=== PATIENT | male | born 1980 | race Two or more races ===

== ENCOUNTER 2016-08-25 10:58 | Outpatient (CLI) | payer MEDICARE, OTHER | END 2016-08-25 23:59 | disposition home or self-care (01) | LOC: WOU 10:58 | PROVIDERS: ATTEND Surgery | DX: L89.324 Pressure ulcer of left buttock, stage 4 (principal); M86.48 Chronic osteomyelitis with draining sinus, other site; Q05.2 Lumbar spina bifida with hydrocephalus; Z98.2 Presence of cerebrospinal fluid drainage device; Z72.0 Tobacco use; K59.00 Constipation, unspecified; E88.09 Other disorders of plasma-protein metabolism, not elsewhere classified | CPT/HCPCS: 11043; A6402 ==

== ENCOUNTER 2016-09-15 14:09 | Outpatient (CLI) | payer MEDICARE, OTHER | END 2016-09-15 23:59 | disposition home or self-care (01) | LOC: WOU 14:09 | PROVIDERS: ATTEND Surgery | DX: M86.48 Chronic osteomyelitis with draining sinus, other site (principal); Q05.2 Lumbar spina bifida with hydrocephalus; Z98.2 Presence of cerebrospinal fluid drainage device; K59.00 Constipation, unspecified; E88.09 Other disorders of plasma-protein metabolism, not elsewhere classified | CPT/HCPCS: 11043; A6402 ==

== ENCOUNTER 2016-09-29 13:56 | Outpatient (CLI) | payer MEDICARE, OTHER | END 2016-09-29 23:59 | disposition home or self-care (01) | DX: L89.324 Pressure ulcer of left buttock, stage 4 (principal); Q05.2 Lumbar spina bifida with hydrocephalus; E88.09 Other disorders of plasma-protein metabolism, not elsewhere classified; K59.00 Constipation, unspecified; Z72.0 Tobacco use; Z98.2 Presence of cerebrospinal fluid drainage device; M86.48 Chronic osteomyelitis with draining sinus, other site | CPT/HCPCS: 11043; A6402 ==

== ENCOUNTER 2016-10-13 13:50 | Outpatient (CLI) | payer MEDICARE, OTHER | END 2016-10-13 23:59 | disposition home or self-care (01) | LOC: WOU 13:50 | PROVIDERS: ATTEND Surgery | DX: L89.324 Pressure ulcer of left buttock, stage 4 (principal); Q05.2 Lumbar spina bifida with hydrocephalus; M86.48 Chronic osteomyelitis with draining sinus, other site; E88.09 Other disorders of plasma-protein metabolism, not elsewhere classified; K59.00 Constipation, unspecified | CPT/HCPCS: 11043; A6402 ==

== ENCOUNTER 2016-11-17 14:00 | Outpatient (CLI) | payer MEDICARE, OTHER | END 2016-11-17 23:59 | disposition home or self-care (01) | LOC: WOU 14:00 | PROVIDERS: ATTEND Surgery | DX: L89.324 Pressure ulcer of left buttock, stage 4 (principal); Q05.2 Lumbar spina bifida with hydrocephalus; M86.48 Chronic osteomyelitis with draining sinus, other site; K59.00 Constipation, unspecified; E88.09 Other disorders of plasma-protein metabolism, not elsewhere classified | CPT/HCPCS: 11043; A6402 ==

== ENCOUNTER 2016-12-01 13:55 | Outpatient (CLI) | payer MEDICARE, OTHER | END 2016-12-01 23:59 | disposition home or self-care (01) | LOC: WOU 13:55 | PROVIDERS: ATTEND Surgery | DX: L89.324 Pressure ulcer of left buttock, stage 4 (principal); Q05.2 Lumbar spina bifida with hydrocephalus; M86.48 Chronic osteomyelitis with draining sinus, other site; K59.00 Constipation, unspecified; E88.09 Other disorders of plasma-protein metabolism, not elsewhere classified; F17.200 Nicotine dependence, unspecified, uncomplicated; Z98.2 Presence of cerebrospinal fluid drainage device | CPT/HCPCS: 11043; A6402 ==

== ENCOUNTER 2016-12-12 13:50 | Outpatient (CLI) | payer MEDICARE, OTHER | END 2016-12-12 23:59 | disposition home or self-care (01) | LOC: WOU 13:50 | PROVIDERS: ATTEND Surgery | DX: L89.324 Pressure ulcer of left buttock, stage 4 (principal); Q05.2 Lumbar spina bifida with hydrocephalus; E88.09 Other disorders of plasma-protein metabolism, not elsewhere classified; K59.09 Other constipation; M86.48 Chronic osteomyelitis with draining sinus, other site; Z72.0 Tobacco use; Z98.2 Presence of cerebrospinal fluid drainage device | CPT/HCPCS: 11043; A6402 ==

== ENCOUNTER 2016-12-29 13:58 | Outpatient (CLI) | payer MEDICARE, OTHER | END 2016-12-29 23:59 | disposition home or self-care (01) | LOC: WOU 13:58 | PROVIDERS: ATTEND Surgery | DX: L89.324 Pressure ulcer of left buttock, stage 4 (principal); Q05.2 Lumbar spina bifida with hydrocephalus; E88.09 Other disorders of plasma-protein metabolism, not elsewhere classified; K59.09 Other constipation; M86.48 Chronic osteomyelitis with draining sinus, other site; Z72.0 Tobacco use; Z98.2 Presence of cerebrospinal fluid drainage device | CPT/HCPCS: 11043; A6402 ==

== ENCOUNTER 2017-01-12 13:45 | Outpatient (CLI) | payer MEDICARE, OTHER | END 2017-01-12 23:59 | disposition home or self-care (01) | LOC: WOU 13:45 | PROVIDERS: ATTEND Surgery | DX: L89.324 Pressure ulcer of left buttock, stage 4 (principal); Q05.2 Lumbar spina bifida with hydrocephalus; Z98.2 Presence of cerebrospinal fluid drainage device; K59.00 Constipation, unspecified; M86.48 Chronic osteomyelitis with draining sinus, other site; Z72.0 Tobacco use | CPT/HCPCS: 11043; A6402 ==

== ENCOUNTER 2017-02-02 14:00 | Outpatient (CLI) | payer MEDICARE, OTHER | END 2017-02-02 23:59 | disposition home or self-care (01) | LOC: WOU 14:00 | PROVIDERS: ATTEND Surgery | DX: L89.324 Pressure ulcer of left buttock, stage 4 (principal); Q05.2 Lumbar spina bifida with hydrocephalus; Z98.2 Presence of cerebrospinal fluid drainage device; K59.00 Constipation, unspecified; E88.09 Other disorders of plasma-protein metabolism, not elsewhere classified; M86.652 Other chronic osteomyelitis, left thigh | CPT/HCPCS: 11043; A6402 ==

== ENCOUNTER 2017-02-16 13:40 | Outpatient (CLI) | payer MEDICARE, OTHER | END 2017-02-16 23:59 | disposition home health service (06) | LOC: WOU 13:40 | PROVIDERS: ATTEND Surgery | DX: L89.324 Pressure ulcer of left buttock, stage 4 (principal); Q05.2 Lumbar spina bifida with hydrocephalus; Z98.2 Presence of cerebrospinal fluid drainage device; K59.00 Constipation, unspecified; E88.09 Other disorders of plasma-protein metabolism, not elsewhere classified; M86.652 Other chronic osteomyelitis, left thigh; Z72.0 Tobacco use | CPT/HCPCS: 11043; A6402 ==

== ENCOUNTER 2017-03-02 13:58 | Outpatient (CLI) | payer MEDICARE, OTHER | END 2017-03-02 23:59 | disposition home health service (06) | LOC: WOU 13:58 | PROVIDERS: ATTEND Surgery | DX: L89.324 Pressure ulcer of left buttock, stage 4 (principal); M86.48 Chronic osteomyelitis with draining sinus, other site; Q05.2 Lumbar spina bifida with hydrocephalus; Z98.2 Presence of cerebrospinal fluid drainage device; K59.00 Constipation, unspecified | CPT/HCPCS: 11043; A6402 ==

== ENCOUNTER 2017-03-16 13:35 | Outpatient (CLI) | payer MEDICARE, OTHER | END 2017-03-16 23:59 | disposition home health service (06) | LOC: WOU 13:35 | PROVIDERS: ATTEND Surgery | DX: L89.324 Pressure ulcer of left buttock, stage 4 (principal); Q05.2 Lumbar spina bifida with hydrocephalus; M86.48 Chronic osteomyelitis with draining sinus, other site; F32.1 Major depressive disorder, single episode, moderate; Z72.0 Tobacco use | CPT/HCPCS: 11043; A6402 ==

== ENCOUNTER 2017-04-03 13:46 | Outpatient (CLI) | payer MEDICARE, OTHER | END 2017-04-03 23:59 | disposition home health service (06) | LOC: WOU 13:46 | PROVIDERS: ATTEND Surgery | DX: L89.324 Pressure ulcer of left buttock, stage 4 (principal); Q05.2 Lumbar spina bifida with hydrocephalus; M86.48 Chronic osteomyelitis with draining sinus, other site; F32.1 Major depressive disorder, single episode, moderate; Z72.0 Tobacco use; Z98.2 Presence of cerebrospinal fluid drainage device | CPT/HCPCS: 11043; A6402 ==

== ENCOUNTER 2017-04-20 13:56 | Outpatient (CLI) | payer MEDICARE, OTHER | END 2017-04-20 23:59 | disposition home health service (06) | LOC: WOU 13:56 | PROVIDERS: ATTEND Surgery | DX: L89.324 Pressure ulcer of left buttock, stage 4 (principal); M86.48 Chronic osteomyelitis with draining sinus, other site; Q05.2 Lumbar spina bifida with hydrocephalus; Z98.2 Presence of cerebrospinal fluid drainage device; K59.00 Constipation, unspecified; Z72.0 Tobacco use; E88.09 Other disorders of plasma-protein metabolism, not elsewhere classified | CPT/HCPCS: 11043; A6402 ==

== ENCOUNTER 2017-05-04 13:52 | Outpatient (CLI) | payer MEDICARE, OTHER | END 2017-05-04 23:59 | disposition home or self-care (01) | LOC: WOU 13:52 | PROVIDERS: ATTEND Surgery | DX: L89.324 Pressure ulcer of left buttock, stage 4 (principal); E88.09 Other disorders of plasma-protein metabolism, not elsewhere classified; K59.00 Constipation, unspecified; Q05.9 Spina bifida, unspecified; M86.48 Chronic osteomyelitis with draining sinus, other site; Z98.2 Presence of cerebrospinal fluid drainage device; Z51.5 Encounter for palliative care | CPT/HCPCS: 11043; A6402 ==

== ENCOUNTER 2017-06-01 13:26 | Outpatient (CLI) | payer MEDICARE, OTHER | END 2017-06-01 23:59 | disposition home or self-care (01) | LOC: WOU 13:26 | PROVIDERS: ATTEND Surgery | DX: L89.324 Pressure ulcer of left buttock, stage 4 (principal); M86.48 Chronic osteomyelitis with draining sinus, other site; Q05.2 Lumbar spina bifida with hydrocephalus; K59.00 Constipation, unspecified; Z98.2 Presence of cerebrospinal fluid drainage device; Z51.5 Encounter for palliative care; Z72.0 Tobacco use; F32.1 Major depressive disorder, single episode, moderate; R26.89 Other abnormalities of gait and mobility | CPT/HCPCS: 11043; A6402 ==

== ENCOUNTER 2017-06-26 13:22 | Outpatient (CLI) | payer MEDICARE, OTHER | END 2017-06-26 23:59 | disposition home or self-care (01) | LOC: WOU 13:22 | PROVIDERS: ATTEND Surgery | DX: L89.324 Pressure ulcer of left buttock, stage 4 (principal); Q05.2 Lumbar spina bifida with hydrocephalus; Z98.2 Presence of cerebrospinal fluid drainage device; Z72.0 Tobacco use; K59.00 Constipation, unspecified; E88.09 Other disorders of plasma-protein metabolism, not elsewhere classified; M86.48 Chronic osteomyelitis with draining sinus, other site; R26.9 Unspecified abnormalities of gait and mobility | CPT/HCPCS: 11043; A6402 ==

== ENCOUNTER 2017-07-13 13:00 | Outpatient (CLI) | payer MEDICARE, OTHER | END 2017-07-13 23:59 | disposition home or self-care (01) | LOC: WOU 13:00 | PROVIDERS: ATTEND Surgery | DX: L89.324 Pressure ulcer of left buttock, stage 4 (principal); Q05.2 Lumbar spina bifida with hydrocephalus; M86.48 Chronic osteomyelitis with draining sinus, other site; Z98.2 Presence of cerebrospinal fluid drainage device; E88.09 Other disorders of plasma-protein metabolism, not elsewhere classified; Z72.0 Tobacco use | CPT/HCPCS: 11043; A6402 ==

== ENCOUNTER 2017-07-27 13:15 | Outpatient (CLI) | payer MEDICARE, OTHER | END 2017-07-27 23:59 | disposition home or self-care (01) | LOC: WOU 13:15 | PROVIDERS: ATTEND Surgery | DX: L89.324 Pressure ulcer of left buttock, stage 4 (principal); M86.48 Chronic osteomyelitis with draining sinus, other site; Q05.2 Lumbar spina bifida with hydrocephalus; Z98.2 Presence of cerebrospinal fluid drainage device; E88.09 Other disorders of plasma-protein metabolism, not elsewhere classified | CPT/HCPCS: 11043; A6402 ==

== ENCOUNTER 2017-08-10 11:04 | Outpatient (CLI) | payer MEDICARE, OTHER | END 2017-08-10 23:59 | disposition home health service (06) | LOC: WOU 11:04 | PROVIDERS: ATTEND Surgery | DX: Z51.5 Encounter for palliative care (principal); L89.324 Pressure ulcer of left buttock, stage 4; M86.48 Chronic osteomyelitis with draining sinus, other site; Q05.2 Lumbar spina bifida with hydrocephalus; Z98.2 Presence of cerebrospinal fluid drainage device; Z89.432 Acquired absence of left foot; E88.09 Other disorders of plasma-protein metabolism, not elsewhere classified; K59.00 Constipation, unspecified; R26.89 Other abnormalities of gait and mobility; Z72.0 Tobacco use | CPT/HCPCS: 11043; A6402 ==

== ENCOUNTER 2017-08-24 13:06 | Outpatient (CLI) | payer MEDICARE, OTHER | END 2017-08-24 23:59 | disposition home health service (06) | LOC: WOU 13:06 | PROVIDERS: ATTEND Surgery | DX: L89.324 Pressure ulcer of left buttock, stage 4 (principal); Z98.2 Presence of cerebrospinal fluid drainage device; Z72.0 Tobacco use | CPT/HCPCS: 11043; A6402 ==

== ENCOUNTER 2017-09-11 13:20 | Outpatient (CLI) | payer MEDICARE, OTHER | END 2017-09-11 23:59 | disposition home health service (06) | LOC: WOU 13:20 | PROVIDERS: ATTEND Surgery | DX: L89.324 Pressure ulcer of left buttock, stage 4 (principal); Q05.2 Lumbar spina bifida with hydrocephalus; M86.48 Chronic osteomyelitis with draining sinus, other site; Z98.2 Presence of cerebrospinal fluid drainage device; Z72.0 Tobacco use; K59.00 Constipation, unspecified; E88.09 Other disorders of plasma-protein metabolism, not elsewhere classified | CPT/HCPCS: 11043; A6402 ==

== ENCOUNTER 2017-09-25 12:50 | Outpatient (CLI) | payer MEDICARE, OTHER | END 2017-09-25 23:59 | disposition home health service (06) | LOC: WOU 12:50 | PROVIDERS: ATTEND Surgery | DX: L89.324 Pressure ulcer of left buttock, stage 4 (principal); M86.48 Chronic osteomyelitis with draining sinus, other site; Q05.2 Lumbar spina bifida with hydrocephalus; Z98.2 Presence of cerebrospinal fluid drainage device; F17.200 Nicotine dependence, unspecified, uncomplicated; E88.09 Other disorders of plasma-protein metabolism, not elsewhere classified; K59.00 Constipation, unspecified | CPT/HCPCS: 11043; A6402 ==

== ENCOUNTER 2017-11-02 11:20 | Outpatient (CLI) | payer MEDICARE, OTHER | END 2017-11-02 23:59 | disposition home health service (06) | LOC: WOU 11:20 | PROVIDERS: ATTEND Surgery | DX: L89.324 Pressure ulcer of left buttock, stage 4 (principal); E88.09 Other disorders of plasma-protein metabolism, not elsewhere classified; K59.00 Constipation, unspecified; Q05.9 Spina bifida, unspecified; F17.200 Nicotine dependence, unspecified, uncomplicated; M86.652 Other chronic osteomyelitis, left thigh | CPT/HCPCS: 11043; A6402 ==

== ENCOUNTER 2017-11-20 12:50 | Outpatient (CLI) | payer MEDICARE, OTHER | END 2017-11-20 23:59 | disposition home health service (06) | LOC: WOU 12:50 | PROVIDERS: ATTEND Surgery | DX: L89.324 Pressure ulcer of left buttock, stage 4 (principal); Q05.2 Lumbar spina bifida with hydrocephalus; M86.48 Chronic osteomyelitis with draining sinus, other site; F17.200 Nicotine dependence, unspecified, uncomplicated; Z98.2 Presence of cerebrospinal fluid drainage device; Z51.5 Encounter for palliative care; E88.09 Other disorders of plasma-protein metabolism, not elsewhere classified; K59.00 Constipation, unspecified | CPT/HCPCS: 11043; A6402 ==

== ENCOUNTER 2017-12-11 12:59 | Outpatient (CLI) | payer MEDICARE, OTHER | END 2017-12-11 23:59 | disposition home health service (06) | LOC: WOU 12:59 | PROVIDERS: ATTEND Surgery | DX: L89.324 Pressure ulcer of left buttock, stage 4 (principal); Q05.2 Lumbar spina bifida with hydrocephalus; K59.00 Constipation, unspecified; E88.09 Other disorders of plasma-protein metabolism, not elsewhere classified; M86.48 Chronic osteomyelitis with draining sinus, other site | CPT/HCPCS: 11043; A6402 ==

== ENCOUNTER 2017-12-25 12:50 | Outpatient (CLI) | payer MEDICARE, OTHER | END 2017-12-25 23:59 | disposition home health service (06) | LOC: WOU 12:50 | PROVIDERS: ATTEND Surgery | DX: L89.324 Pressure ulcer of left buttock, stage 4 (principal); Q05.2 Lumbar spina bifida with hydrocephalus; M86.48 Chronic osteomyelitis with draining sinus, other site; F17.200 Nicotine dependence, unspecified, uncomplicated; K59.00 Constipation, unspecified | CPT/HCPCS: 11043; A6402 ==

== ENCOUNTER 2018-01-08 13:00 | Outpatient (CLI) | payer MEDICARE, OTHER | END 2018-01-08 23:59 | disposition home health service (06) | LOC: WOU 13:00 | PROVIDERS: ATTEND Surgery | DX: L89.324 Pressure ulcer of left buttock, stage 4 (principal); Q05.2 Lumbar spina bifida with hydrocephalus; M86.48 Chronic osteomyelitis with draining sinus, other site; E88.09 Other disorders of plasma-protein metabolism, not elsewhere classified; R19.7 Diarrhea, unspecified; Z72.0 Tobacco use; L98.8 Other specified disorders of the skin and subcutaneous tissue | CPT/HCPCS: 11043; A6402 ==

== ENCOUNTER 2018-01-22 12:50 | Outpatient (CLI) | payer MEDICARE, OTHER | END 2018-01-22 23:59 | disposition home health service (06) | LOC: WOU 12:50 | PROVIDERS: ATTEND Surgery | DX: L89.324 Pressure ulcer of left buttock, stage 4 (principal); Q05.2 Lumbar spina bifida with hydrocephalus; M86.48 Chronic osteomyelitis with draining sinus, other site; S30.810A Abrasion of lower back and pelvis, initial encounter; X58.XXXA Exposure to other specified factors, initial encounter; Y92.89 Other specified places as the place of occurrence of the external cause; L98.8 Other specified disorders of the skin and subcutaneous tissue; K59.00 Constipation, unspecified; R19.7 Diarrhea, unspecified; Z72.0 Tobacco use; E88.09 Other disorders of plasma-protein metabolism, not elsewhere classified | CPT/HCPCS: 11043; A6402; Z7610 ==

== ENCOUNTER 2018-02-12 13:30 | Outpatient (CLI) | payer MEDICARE, OTHER | END 2018-02-12 23:59 | disposition home health service (06) | LOC: WOU 13:30 | PROVIDERS: ATTEND Surgery | DX: L89.324 Pressure ulcer of left buttock, stage 4 (principal); M86.48 Chronic osteomyelitis with draining sinus, other site; Q05.2 Lumbar spina bifida with hydrocephalus; E88.09 Other disorders of plasma-protein metabolism, not elsewhere classified; Z72.0 Tobacco use | CPT/HCPCS: 11043; A6402; Z7610 ==

== ENCOUNTER 2018-02-26 14:10 | Outpatient (CLI) | payer MEDICARE, OTHER | END 2018-02-26 23:59 | disposition home health service (06) | LOC: WOU 14:10 | PROVIDERS: ATTEND Surgery | DX: L89.324 Pressure ulcer of left buttock, stage 4 (principal); M86.48 Chronic osteomyelitis with draining sinus, other site; Q05.2 Lumbar spina bifida with hydrocephalus; E88.09 Other disorders of plasma-protein metabolism, not elsewhere classified; Z72.0 Tobacco use | CPT/HCPCS: 11043; A6402; Z7610 ==

== ENCOUNTER 2018-03-22 14:36 | Outpatient (CLI) | payer MEDICARE, OTHER | END 2018-03-22 23:59 | disposition home health service (06) | LOC: WOU 14:36 | PROVIDERS: ATTEND Surgery | DX: L89.324 Pressure ulcer of left buttock, stage 4 (principal); Q05.2 Lumbar spina bifida with hydrocephalus; M86.68 Other chronic osteomyelitis, other site; F17.200 Nicotine dependence, unspecified, uncomplicated; K59.00 Constipation, unspecified; Z98.2 Presence of cerebrospinal fluid drainage device | CPT/HCPCS: 11043; A6402; Z7610 ==

== ENCOUNTER 2018-04-05 13:00 | Outpatient (CLI) | payer MEDICARE, OTHER ==
[~2018-04-05 13:00] MED LIST: LIDOCAINE 1% INJ 50 ML MDV IJ ONE; TDAP [DIPH/PERTUSSIS/TET] 0.5 ML VIAL IM ONE
== END 2018-04-05 23:59 | disposition home health service (06) ==
LOC: WOU 13:00
PROVIDERS: ATTEND Surgery
DX: L89.324 Pressure ulcer of left buttock, stage 4 (principal); G91.9 Hydrocephalus, unspecified; M86.48 Chronic osteomyelitis with draining sinus, other site; E88.09 Other disorders of plasma-protein metabolism, not elsewhere classified; Z72.0 Tobacco use
CPT/HCPCS: 11043; 90715; A6402; J3490

== ENCOUNTER 2018-04-19 15:00 | Outpatient (CLI) | payer MEDICARE, OTHER | END 2018-04-19 23:59 | disposition home health service (06) | LOC: WOU 15:00 | PROVIDERS: ATTEND Surgery | DX: L89.324 Pressure ulcer of left buttock, stage 4 (principal); M86.48 Chronic osteomyelitis with draining sinus, other site; Q05.2 Lumbar spina bifida with hydrocephalus; Z72.0 Tobacco use; E88.09 Other disorders of plasma-protein metabolism, not elsewhere classified | CPT/HCPCS: 11043; A6402; Z7610 ==

== ENCOUNTER 2018-05-10 13:50 | Outpatient (CLI) | payer MEDICARE, OTHER | END 2018-05-10 23:59 | disposition home health service (06) | LOC: WOU 13:50 | PROVIDERS: ATTEND Surgery | DX: L89.324 Pressure ulcer of left buttock, stage 4 (principal); Q05.2 Lumbar spina bifida with hydrocephalus; E88.09 Other disorders of plasma-protein metabolism, not elsewhere classified; Z72.0 Tobacco use; M86.48 Chronic osteomyelitis with draining sinus, other site | CPT/HCPCS: 11043; A6402; Z7610 ==

== ENCOUNTER 2018-05-24 13:59 | Outpatient (CLI) | payer MEDICARE, OTHER | END 2018-05-24 23:59 | disposition home health service (06) | LOC: WOU 13:59 | PROVIDERS: ATTEND Surgery | DX: L89.324 Pressure ulcer of left buttock, stage 4 (principal); M86.48 Chronic osteomyelitis with draining sinus, other site; Q05.4 Unspecified spina bifida with hydrocephalus; S91.311A Laceration without foreign body, right foot, initial encounter; X58.XXXA Exposure to other specified factors, initial encounter; Y92.89 Other specified places as the place of occurrence of the external cause; E88.09 Other disorders of plasma-protein metabolism, not elsewhere classified | CPT/HCPCS: 11042; 11043; A6402; Z7610 ==

== ENCOUNTER 2018-07-26 13:29 | Outpatient (CLI) | payer MEDICARE, OTHER | END 2018-07-26 23:59 | disposition home health service (06) | LOC: WOU 13:29 | PROVIDERS: ATTEND Surgery | DX: L89.324 Pressure ulcer of left buttock, stage 4 (principal); L89.153 Pressure ulcer of sacral region, stage 3; G60.3 Idiopathic progressive neuropathy; M86.652 Other chronic osteomyelitis, left thigh; Q05.2 Lumbar spina bifida with hydrocephalus; Z98.2 Presence of cerebrospinal fluid drainage device; Z72.0 Tobacco use; E88.09 Other disorders of plasma-protein metabolism, not elsewhere classified | CPT/HCPCS: 11042; 11043; A6402; Z7610 ==

== ENCOUNTER 2018-08-09 13:20 | Outpatient (CLI) | payer MEDICARE, OTHER | END 2018-08-09 23:59 | disposition home health service (06) | LOC: WOU 13:20 | PROVIDERS: ATTEND Surgery | DX: L89.324 Pressure ulcer of left buttock, stage 4 (principal); L89.153 Pressure ulcer of sacral region, stage 3; Q05.2 Lumbar spina bifida with hydrocephalus; G60.3 Idiopathic progressive neuropathy; M86.48 Chronic osteomyelitis with draining sinus, other site; Z98.2 Presence of cerebrospinal fluid drainage device; F17.210 Nicotine dependence, cigarettes, uncomplicated; E88.09 Other disorders of plasma-protein metabolism, not elsewhere classified | CPT/HCPCS: 11042; 11043; A6402; Z7610 ==

== ENCOUNTER 2018-08-23 13:05 | Outpatient (CLI) | payer MEDICARE, OTHER | END 2018-08-23 23:59 | disposition home health service (06) | LOC: WOU 13:05 | PROVIDERS: ATTEND Surgery | DX: L89.324 Pressure ulcer of left buttock, stage 4 (principal); L89.153 Pressure ulcer of sacral region, stage 3; G60.3 Idiopathic progressive neuropathy; Q05.2 Lumbar spina bifida with hydrocephalus; M86.48 Chronic osteomyelitis with draining sinus, other site; Z98.2 Presence of cerebrospinal fluid drainage device; F17.210 Nicotine dependence, cigarettes, uncomplicated | CPT/HCPCS: 11043; A6402 ==

== ENCOUNTER 2018-09-06 13:15 | Outpatient (CLI) | payer MEDICARE, OTHER | END 2018-09-06 23:59 | disposition home health service (06) | LOC: WOU 13:15 | PROVIDERS: ATTEND Surgery | DX: L89.324 Pressure ulcer of left buttock, stage 4 (principal); M86.48 Chronic osteomyelitis with draining sinus, other site; G60.3 Idiopathic progressive neuropathy; Q05.2 Lumbar spina bifida with hydrocephalus; E88.09 Other disorders of plasma-protein metabolism, not elsewhere classified; F17.210 Nicotine dependence, cigarettes, uncomplicated; S91.311A Laceration without foreign body, right foot, initial encounter; S91.312A Laceration without foreign body, left foot, initial encounter; L03.116 Cellulitis of left lower limb; X58.XXXA Exposure to other specified factors, initial encounter; Y92.89 Other specified places as the place of occurrence of the external cause | CPT/HCPCS: 11043; 11042; 87070; 87075; 87077; A6402 ×2; A6407; J3490 ==

== ENCOUNTER 2018-09-17 11:55 | Outpatient (CLI) | payer MEDICARE, OTHER ==
[2018-09-17] MEDS ORDERED: AMOX1TAB16 (15:32)
== END 2018-09-17 23:59 | disposition home health service (06) ==
LOC: WOU 11:55
PROVIDERS: ATTEND Podiatrist Foot & Ankle Surgery
DX: S91.312A Laceration without foreign body, left foot, initial encounter (principal); L03.116 Cellulitis of left lower limb; L97.523 Non-pressure chronic ulcer of other part of left foot with necrosis of muscle; S91.311D Laceration without foreign body, right foot, subsequent encounter; Q05.2 Lumbar spina bifida with hydrocephalus; M86.48 Chronic osteomyelitis with draining sinus, other site; G60.3 Idiopathic progressive neuropathy; X58.XXXA Exposure to other specified factors, initial encounter; Y92.89 Other specified places as the place of occurrence of the external cause; F17.200 Nicotine dependence, unspecified, uncomplicated
CPT/HCPCS: 11043; 87070; 87075; A6402; 87186-TC

== ENCOUNTER 2018-09-17 13:59 | Inpatient (IN) | payer MEDICARE, OTHER ==
[~2018-09-17] VITALS: Ht 167.6 cm; Wt 71.0 kg
--- NOTE | 2018-09-17 15:00 | NUR ---
MS ASSET ANALYST NOTE RECEIVED PATIENT FROM [facility] FOR DIRECT ADMISSION WITH LEFT FOOT CELLULITIS. PATIENT WAS BROUGHT TO THE UNIT ON A WHEELCHAIR BY THE CLINIC RN. PATIENT IS ALERT ORIENTED X3, ON ROOM AIR, IN NO APPARENT DISTRESS OR DISCOMFORT AT THIS TIME, RESPIRATIONS EVEN AND UNLABORED. PATIENT IS STABLE, VITAL SIGNS STABLE. PATIENT WAS MADE COMFORTABLE IN BED. INITIAL ASSESSMENT COMPLETES, SKIN ASSESSMENT PERFORMED, PHOTOS TAKEN PLACED IN CHART. DRESSINGS CHANGED ON BILATERAL EXTREMITIES PER WOUND CARE NURSE'S INSTRUCTIONS. PATIENT HAS NO IV ACCESS AT THIS TIME. BELONGING CHECKED AND DOCUMENTED. PATIENT MADE COMFORTABLE IN BED. ID BAND APPLIED, ORIENTED TO ROOM AND HOW TO CALL FOR ASSISTANCE. SAFETY MEASURES APPLIED, BED IN LOW LOCKED POSITION, SIDE RAILS UP X2, CALL LIGHT WITHIN EASY REACH. MOM AT BEDSIDE WITH THE PATIENT. NOTIFIED DR. MCCOY OF PATIENT'S ARRIVAL TO THE UNIT. WILL CONTINUE TO MONITOR AND CARRY OUT ADMISSION ORDERS.
[2018-09-17] MEDS ORDERED: AMOX1TAB16 (15:32)
[2018-09-17] MEDS ORDERED: ZOLPIDEM TARTRATE 5 MG TABLET PO PRN (16:00)
[2018-09-17] MEDS ORDERED: Z GUARD REMEDY 2 OZ OINT TP PRN (16:00)
[2018-09-17] MEDS ORDERED: VANCOMYCIN 1 GM in IV NS 0.9% 250 ML IV SCH (16:00)
[2018-09-17] MEDS ORDERED: MAG HYDROX/AL HYDROX/SIMETH 30 ML UDC PO PRN (16:00)
[2018-09-17] MEDS ORDERED: ACETAMINOPHEN 325 MG TABLET PO PRN (16:00)
[2018-09-17] MEDS ORDERED: ONDANSETRON HCL/PF 4 MG/2 ML VIAL IVP PRN (16:00)
[2018-09-17] MEDS ORDERED: MAGNESIUM HYDROXIDE 30 ML UDC PO PRN (16:00)
[2018-09-17 16:20] VITALS: BP 137/80
--- NOTE | 2018-09-17 17:00 | NUR ---
MS RN NOTE UNABLE TO ESTABLISH IV ACCESS AT THIS TIME. ATTEMPTED BY ME AND CATALINO BRITTON. REPORTED TO DR. DARIUS PINEDA. ORDER RECEIVED FOR MIDLINE INSERTION. SAUSAGE COOKER OPAL NOTIFIED, MIDLINE TEAM NOTIFIED. WILL FOLLOW UP.
[2018-09-17] MEDS: HYDROCODONE/APAP 5/325MG 1 EACH TABLET PO PRN (17:11)
[2018-09-17 17:56] LABS: CALCIUM, SERUM 9.4 mg/dL (8.5-10.1); CREATININE 0.8 mg/dL (0.6-1.3); POTASSIUM 3.7 mmol/L (3.5-5.1)
[2018-09-17 18:00] VITALS: BP 137/80
[2018-09-17] MEDS ORDERED: FEE PK DOSING 1 MIN EA MC ONE (18:06)
--- NOTE | 2018-09-17 19:00 | NUR ---
MS RN CLOSING NOTE PATIENT IN BED. ALERT ORIENTED X3, ON ROOM AIR, TOLERATING WELL. IN NO APPARENT DISTRESS OR DISCOMFORT AT THIS TIME. RESPIRATIONS EVEN AND UNLABORED. JUAN PAIN AND SOB AT THIS TIME. PATIENT IS ABLE TO COMMUNICATE NEEDS. LEFT UPPER ARM 18G MIDLINE IN PLACE, PATENT AND INTACT, SL. LEFT FOOT WOUND WITH DRESSING C/D/I. PATIENT KEPT CLEAN AND COMFORTABLE. ALL NEEDS ATTENDED, ORDERS RENDERED, SAFETY MEASURES IN PLACE, BED IN LOW LOCKED POSITION, SIDE RAILS UP X2, CALL LIGHT WITHIN EASY REACH. WILL ENDORSE TO PM NURSE FOR SARANYA.
--- NOTE | 2018-09-17 19:55 | NUR ---
MS RN NOTES RECEIVED PATIENT AWAKE IN BED. ALERT ORIENTED X3, ON ROOM AIR, TOLERATING WELL. IN NO APPARENT DISTRESS OR DISCOMFORT NOTED AT THIS TIME. RESPIRATIONS EVEN AND UNLABORED. DENIES PAIN AND SOB AT THIS TIME. PATIENT IS ABLE TO COMMUNICATE NEEDS. LEFT UPPER ARM 18G MIDLINE IN PLACE, PATENT AND INTACT, SL. LEFT FOOT WOUND WITH DRESSING CLEAN, DRY AND INTACT.PATIENT KEPT CLEAN AND COMFORTABLE, SAFETY MEASURES IN PLACE, BED IN LOW LOCKED POSITION, SIDE RAILS UP X2, CALL LIGHT WITHIN EASY REACH. WILL MONITOR ACCORDINGLY.
[2018-09-17] MEDS ORDERED: PIPERACILLIN /TAZOBACTAM 3.375 G in IV D5W 50 ML IV SCH (20:00)
[2018-09-17] MEDS: VANCOMYCIN 1.25 GM in IV D5W 500 ML IV SCH (20:24)
[2018-09-17 20:27] VITALS: BP 140/79
[2018-09-17] MEDS: PIPERACILLIN /TAZOBACTAM 3.375 G in IV D5W 50 ML IV SCH (21:00)
[2018-09-18] MEDS: PIPERACILLIN /TAZOBACTAM 3.375 G in IV D5W 50 ML IV SCH ×3 (03:12→15:18)
[2018-09-18] MEDS: VANCOMYCIN 1.25 GM in IV D5W 500 ML IV SCH ×2 (03:36→11:43)
[2018-09-18 06:36] LABS: CALCIUM, SERUM 9.4 mg/dL (8.5-10.1); MAGNESIUM 2.3 mg/dL (1.8-2.4); PHOSPHORUS 4.1 mg/dL (2.5-4.9); POTASSIUM 3.8 mmol/L (3.5-5.1)
[2018-09-18 06:44] LABS: BASOPHILS % (AUTO) 0.5 % (0.0-2.0); EOSINOPHILS % (AUTO) 5.6 % (0.0-6.0); HEMATOCRIT 41 % (39-51); LYMPHOCYTES # (AUTO) 0.7 /CMM (0.8-4.8); LYMPHOCYTES % (AUTO) 9.3 % (20.0-44.0); MEAN CORPUSCULAR HGB CONC 34 g/dl (31.0-36.0); MEAN CORPUSCULAR VOLUME 93 fL (80-96); MONOCYTES # (AUTO) 0.6 /CMM (0.1-1.30); MONOCYTES % (AUTO) 7.7 % (2.0-12.0); NEUTROPHILS # (AUTO) 5.8 /CMM (1.8-8.9); NEUTROPHILS % (AUTO) 76.9 % (43.0-81.0); PLATELET COUNT (AUTO) 473 /CMM (150-450); RED BLOOD CELL COUNT(AUTO) 4.41 MIL/uL (4.5-6.0); WHITE BLOOD COUNT (AUTO) 7.5 K/uL (4.3-11.0)
[2018-09-18 06:45] LABS: THYROID STIMULATING HORMONE 1.78 uIU/mL (0.358-3.74)
--- NOTE | 2018-09-18 07:55 | NUR ---
RN NOTES ALL NEEDS ATTENDED AND MET. ENDORSE TO AM NURSE FOR CONTINUITY OF CARE.
[2018-09-18 08:00] VITALS: BP 125/70
--- NOTE | 2018-09-18 14:56 | NUR ---
patients Vanco Trough came back high at 23. Infusion was stopped at 1415 had not been infused all the way had more than half still to go. Addendum: 09/18/18 at 1501 by RADHA MICHEL LVN Please Check Vanco Trough new laabs before giving
[2018-09-18 16:00] VITALS: BP 133/81
[2018-09-18] MEDS: CEFTRIAXONE 1 G in IV D5W 50 ML IV SCH (18:24)
--- NOTE | 2018-09-18 19:44 | NUR ---
MS RN OPENING NOTES: RECEIVED PT ON ROOM AIR AND IS TOLERATING WELL. PT IS AWAKE AND IS A/OX3. PT IS WATCHING TELEVISION AT THIS TIME. PT HAS BJ #18G MIDLINE AND IS BEING INFUSED WITH IV NS AT 75ML/HR. BED KEPT IN LOW, LOCKED POSITION, AND SIDE RAILS X 2UP. WILL CONTINUE TO MONITOR PT.
--- NOTE | 2018-09-18 19:50 | NUR ---
MS MADIHA NOTES: PT IN STABLE CONDITION. ENDORSED TO ARMEN CLEARY, FOR SARANYA.
--- NOTE | 2018-09-18 19:54 | NUR ---
MS RN RECEIVED PT ON BED, A/O X 3, NOT IN ANY FORM OF DISTRESS, RESPIRATIONS EVEN AND UNLABORED, NO SOB NOTED, STABLE CONDITION. SAFETY MEASURES IN PLACE. WILL CONTINUE TO MONITOR.
[2018-09-18 20:00] VITALS: BP 128/76
[2018-09-18 20:09] VITALS: BP 128/76
[2018-09-18] MEDS: IV NS 0.9% 1,000 ML IV PRN (21:29)
[2018-09-18] MEDS ORDERED: VANCOMYCIN 1 GM in IV D5W 250 ML IV SCH (23:00)
[2018-09-19] MEDS: IV NS 0.9% 1,000 ML IV PRN (05:10)
--- NOTE | 2018-09-19 06:35 | NUR ---
RN CLOSING NOTE ASLEEP AND EASILY AWAKEN. NOT IN DISTRESS. STABLE, NURSING CARE RENDERED, KEPT CLEAN AND DRY AND COMFORT, NEEDS ATTENDED AND ANTICIPATED. GOOD SKIN CARE PROVIDED. NO COMPLAIN OF PAIN. SAFETY MEASURES IN PLACE, CALL LIGHT WITHIN REACH.
--- NOTE | 2018-09-19 07:20 | NUR ---
MS RN NOTES PATIENT IN BED EYES CLOSED, EASY TO AROUSE. NO ACUTE DISTRESS NOTED. BREATHING UNLABORED. DENIED ANY PAIN AT THIS TIME. IV ACCESS PATENT AND INTACT, NO REDNESS NO SWELLING NOTED. SAFETY MEASURES IN PLACE. CALL LIGHT WITHIN REACH. WILL CONTINUE TO MONITOR ACCORDINGLY.
[2018-09-19 07:34] LABS: CALCIUM, SERUM 8.9 mg/dL (8.5-10.1); CREATININE 0.9 mg/dL (0.6-1.3); POTASSIUM 3.8 mmol/L (3.5-5.1)
[2018-09-19 08:00] VITALS: BP 133/68
--- NOTE | 2018-09-19 10:59 | NUR ---
MS RN NOTES SEEN AND EVALUATED BY KATELYNN TEJEDA STARBUCKS CLERK WITH NEW ORDERS MADE, NOTED AND CARRIED OUT.
--- NOTE | 2018-09-19 12:19 | NUR ---
MS RN NOTES SEEN AND EVALUATED BY DR MELISA DANIELS WITH NEW ORDERS MADE, NOTED AND CARRIED OUT.
[2018-09-19] MEDS ORDERED: LIDOCAINE 1% INJ 50 ML MDV IJ ONE (12:30)
[2018-09-19 16:00] VITALS: BP 135/80
[2018-09-19] MEDS: CEFTRIAXONE 1 G in IV D5W 50 ML IV SCH (17:35)
--- NOTE | 2018-09-19 19:00 | NUR ---
MS RN OPENING NOTES Patient A/O x3, awake on Villasenor's position on bed. On RA, no SOB/respiratory distress noted. With patent midline G#18 with NS infusing well @ 75ml/hr. Patient denies discomfort at this time. Kept bed low and locked, siderails up. Call light within easy reach. Will continue to monitor accordingly.
--- NOTE | 2018-09-19 19:00 | NUR ---
MS RN NOTES PATIENT IN BED ALERT ORIENTED X 3. NO ACUTE DISTRESS NOTED. BREATHING UNLABORED. DENIED ANY PAIN AT THIS TIME. IV ACCESS PATENT AND INTACT, NO REDNESS NO SWELLING NOTED. DUE MEDICATIONS GIVEN, NO ASE NOTED. NEEDS ATTENDED AND ANTICIPATED. SAFETY MEASURES IN PLACE. CALL LIGHT WITHIN REACH. ENDORSED TO NIGHT NURSE FOR CONTINUITY OF CARE.
[2018-09-19 20:00] VITALS: BP 158/89
[2018-09-19 20:50] VITALS: BP 158/89
[2018-09-20] MEDS: IV NS 0.9% 1,000 ML IV PRN ×2 (02:08→18:03)
--- NOTE | 2018-09-20 07:00 | NUR ---
MS RN CLOSING NOTES Patient asleep on bed. No SOB/respiratory distress noted. Afebrile the whole shift. No new complaints made. All nursing needs attended. Kept bed low and locked, siderails up. Call light at bedside. Endorsed to the next shift.
--- NOTE | 2018-09-20 07:25 | NUR ---
MS/RN NOTE THE PATIENT ALERT AND ORIENTED X3. IN ROOM AND DENIES SOB. RESPIRATION REGULAR AND UNLABORED. DENIES PAIN. THE PATIENT IN NO APPARENT DISTRESS. BJ MIDLINE G 18 PATENT AND NORMAL SALINE INFUSING AT 75ML/HR. NO S/S INFILTRATION NOTED. BED LOW AND LOCKED. SIDE RAILS UP X2. CALL LIGHT WITHIN REACH. WILL CONTINUE TO MONITOR.
[2018-09-20 08:00] VITALS: BP 137/83
[2018-09-20] MEDS: HYDROGEL DRESSING 90 GM TUBE TP SCH (08:31)
[2018-09-20 11:10] LABS: CALCIUM, SERUM 8.7 mg/dL (8.5-10.1); CREATININE 0.9 mg/dL (0.6-1.3); POTASSIUM 3.6 mmol/L (3.5-5.1)
[2018-09-20 16:00] VITALS: BP 143/91
[2018-09-20] MEDS: CEFTRIAXONE 1 G in IV D5W 50 ML IV SCH (18:03)
--- NOTE | 2018-09-20 18:30 | NUR ---
MS/RN NOTE THE PATIENT ALERT AND ORIENTED X3. IN ROOM AIR AND SATURATION IS AT 97%. DENIES SOB. RESPIRATION REGULAR AND UNLABORED. DENIES PAIN. THE PATIENT IN NO APPARENT DISTRESS. BJ MIDLINE G 18 PATENT AND NORMAL SALINE INFUSING AT 75ML/HR. NO S/S INFILTRATION NOTED. BED LOW AND LOCKED. SIDE RAILS UP X3. CALL LIGHT WITHIN REACH. WILL ENDORSE TO BAG PRINTER.
--- NOTE | 2018-09-20 19:15 | NUR ---
MS CATALINO INITIAL NOTES RECEIVED REPORT FROM AM NURSE WHILE DOING ROUNDS AND SEEN PT IN BED SITTING WHILE WATCHING TV , DENIES ANY PAIN OR ANY DISCOMFORT. NO SOB NOTED. DRESSING ON HIS LEFT FOOT DRY AND INTACT AND PER PT IT JUST DONE DEBRIDEMENT EARLIER. NS T 75ML/HR INFUSING ON HIS LEFT UPPER ARM MIDLINE PATENT AND INTACT. KEPT HIM WARM AND COMFORTABLE AT ALL TIMES. WILL CONTINUE MONITORING. PLACE CALL LIGHT AT REACH.
[2018-09-20 20:00] VITALS: BP 140/79
[2018-09-21] MEDS: HYDROCODONE/APAP 5/325MG 1 EACH TABLET PO PRN (00:52)
--- NOTE | 2018-09-21 00:52 | NUR ---
MS CATALINO NOTES PT CALLED AND COMPLAINING OF PAIN ON HIS FOOT . NORCO TABLET GIVEN ORDERED. KEPT HIM WARM AND COMFORTABLE AT ALL TIMES. IVF STILL INFUSING. WILL CONTINUE MONITORING.
--- NOTE | 2018-09-21 02:46 | NUR ---
MS TRUCKLOAD OWNER OPERATOR NOTES' PT SLEEPING COMFORTABLY IN BED WITHOUT ANY ACUTE DISTRESS OR ANY DISCOMFORT NOTED. WILL CONTINUE MONITORING.
--- NOTE | 2018-09-21 07:24 | NUR ---
MS COMPUTER LAB AIDE CLOSING NOTES PT REMAINS SLEEPING COMFORTABLY IN BED WITHOUT ANY ACUTE DISTRESS NOTED. BREATHING EVEN AND UNLABORED. ALL DUE MEDS GIVEN AND ALL NEEDS MET. KEPT HIM WARM AND COMFORTABLE AT ALL TIMES. PLACE CALL LIGHT AT REACH ENDORSE TO AM NURSE FOR CONTINUITY OF CARE. .
[2018-09-21 07:28] LABS: CREATININE 0.8 mg/dL (0.6-1.3); POTASSIUM 3.9 mmol/L (3.5-5.1)
--- NOTE | 2018-09-21 07:29 | NUR ---
MS RN OPENING NOTES PATIENT IS A/OX4, IN NO APPARENT DISTRESS. BEDSIDE RAILS ARE UPX2. BED IS LOCKED AND LOWERED. CALL LIGHT WITHIN REACH. IV LINE IS INTACT AND PATENT. WILL CONTINUE TO MONITOR.
[2018-09-21 08:00] VITALS: BP 119/66
[2018-09-21] MEDS: HYDROGEL DRESSING 90 GM TUBE TP SCH (08:24)
[2018-09-21 16:00] VITALS: BP 139/87
[2018-09-21] MEDS: CEFTRIAXONE 1 G in IV D5W 50 ML IV SCH (17:39)
--- NOTE | 2018-09-21 18:06 | NUR ---
MS RN CLOSING NOTES PATIENT IS IN STABLE CONDITION. IN NO APPARENT DISTRESS. BEDSIDE RAILS ARE UPX2. BED IS LOCKED AND LOWERED. CALL LIGHT IS WITHIN REACH. IV LINE IS INTACT AND PATENT. ALL NEEDS WERE MET. WILL ENDORSE CARE TO INSPECTOR SEMICONDUCTOR WAFER NURSE FOR SARANYA.
--- NOTE | 2018-09-21 19:35 | NUR ---
RN OPENING NOTE RECEIVED PT. PT IS STABLE AND RESTING IN BED. NO S/S OF RESP DISTRESS/SOB. NO C/O PAIN AT THIS TIME. A/OX4. IV ACCESS LOCATED ON BJ MIDLINE 18G INFUSING NS AT 75 CC/HR. CLEAN/DRY/INTACT DRESSING NOTED ON LEFT FOOT, PERFORMED BY MD GARCIA ON 09/21/18. SAFETY MEASURES IN PLACE, CALL LIGHT WITHIN REACH. WILL CONTINUE TO MONITOR.
[2018-09-21 21:23] VITALS: BP 156/92
[2018-09-21 21:40] VITALS: BP 151/92
[2018-09-22] MEDS ORDERED: HYDROMORPHONE 1 MG/1 ML DISP.SYRIN ONE (02:59)
[2018-09-22] MEDS ORDERED: ONDANSETRON HCL/PF 4 MG/2 ML VIAL ONE (02:59)
[2018-09-22] MEDS ORDERED: LORAZEPAM INJ 2 MG/ML VIAL ONE (03:00)
--- NOTE | 2018-09-22 06:21 | NUR ---
RN CLOSING NOTE PT IN BED SLEEPING. NO S/S OF RESP DISTRESS/SOB. PT DOES NOT APPEAR TO BE IN PAIN. PER ID F/U, PT WILL LIKELY NEED 2 WEEKS OF IV ABX, RECOMMENDING POSSIBLE PICC LINE FOR D/C IV ABX THERAPY. ALL PT NEEDS ANTICIPATED AND MET, SAFETY MEASURES IN PLACE, CALL LIGHT WITHIN REACH. WILL ENDORSE TO DAY SHIFT FOR SARANYA.
[2018-09-22 08:00] VITALS: BP 129/74
--- NOTE | 2018-09-22 08:00 | NUR ---
MS RN AM NOTE PT IN BED ALERT AND ORIENTED X4.NO S/S OF RESP DISTRESS/SOB. DENIES PAIN. PER ID F/U, PT WILL LIKELY NEED 2 WEEKS OF IV ABX, RECOMMENDING POSSIBLE PICC LINE FOR D/C IV ABX THERAPY. SEEN BY DR PASCUAL FOR PICC LINE INSERTION-CLARIFIED WITH THE PROGRAM SPECIALIST WHO STATED THAT WE NEED TO PUT PICC LINE ON THE PT PRIOR TO DC.WILL F/U WITH SENIOR PROJECT MANAGER TO HOME HEALTH ARRANGEMENTS.NEEDS ANTICIPATED AND MET, SAFETY MEASURES IN PLACE, CALL LIGHT WITHIN REACH.
[2018-09-22 09:12] LABS: BASOPHILS % (AUTO) 0.6 % (0.0-2.0); EOSINOPHILS % (AUTO) 7.4 % (0.0-6.0); HEMATOCRIT 42 % (39-51); HEMOGLOBIN 14.2 g/dL (13.5-17.5); LYMPHOCYTES % (AUTO) 15.6 % (20.0-44.0); MEAN CORPUSCULAR HGB CONC 34 g/dl (31.0-36.0); MEAN CORPUSCULAR VOLUME 93 fL (80-96); MONOCYTES # (AUTO) 0.6 /CMM (0.1-1.30); MONOCYTES % (AUTO) 8.7 % (2.0-12.0); NEUTROPHILS # (AUTO) 4.5 /CMM (1.8-8.9); NEUTROPHILS % (AUTO) 67.7 % (43.0-81.0); PLATELET COUNT (AUTO) 461 /CMM (150-450); RED BLOOD CELL COUNT(AUTO) 4.53 MIL/uL (4.5-6.0); WHITE BLOOD COUNT (AUTO) 6.6 K/uL (4.3-11.0)
[2018-09-22 09:19] LABS: CREATININE 0.8 mg/dL (0.6-1.3); POTASSIUM 4.1 mmol/L (3.5-5.1)
[2018-09-22] MEDS: HYDROGEL DRESSING 90 GM TUBE TP SCH (09:21)
--- NOTE | 2018-09-22 15:00 | NUR ---
PT REFUSED TO HAVE HIS BED LINENS CHANGED AND SPONGE BATH TO BE DONE.INSTRUCTED TO TURNED EVERY TWO HRS FOR SKIN MANAGEMENT.WILL DO WOUND TX TO LT BUTTOCK AND LT FOOT ORDERED.
[2018-09-22] MEDS: IV NS 0.9% 1,000 ML IV PRN (15:25)
[2018-09-22 16:30] VITALS: BP 134/80
[2018-09-22] MEDS: CEFTRIAXONE 1 G in IV D5W 50 ML IV SCH (17:16)
--- NOTE | 2018-09-22 18:54 | NUR ---
RESTING IN BED WATCHING TV WITH ONGOING IVF OF NS AT 75 ML/HR INFUSING WELL.DENYING ANY PAIN OR DISTRESS.WAS ABLE TO DO ADL CARE INDEPENDENTLY WITH STANDBY ASSIST.BED LINENS WERE CHANGED.CALL LIGHT PLACED WITHIN REACH.
[2018-09-22 20:00] VITALS: BP 144/94
--- NOTE | 2018-09-22 20:00 | NUR ---
MS RN NOTES RECEIVED PATIENT AWAKE IN BED AND WATCHING TV WITH NO DISTRESS NOTED. CALL LIGHT WITHIN REACH. NO C/O PAIN OR DISCOMFORT. PERIPHERAL LINE INTACT AND PATENT. BED IN LOW LOCK SETTING. ALL BELONGINGS KEPT NEAR BEDSIDE. WILL CONTINUE TO MONITOR
--- NOTE | 2018-09-23 06:27 | NUR ---
MS RN NOTES PATIENT ASLEEP IN BED WITH NO DISTRESS NOTED. CALL LIGHT WITHIN REACH. NO C/O PAIN OR DISCOMFORT. PERIPHERAL LINE INTACT AND PATENT. BED IN LOW LOCK SETTING. ALL BELONGINGS KEPT NEAR BEDSIDE. WILL ENDORSE TO ONCOMING SHIFT.
--- NOTE | 2018-09-23 07:40 | NUR ---
MS/RN NOTE THE PATIENT ALERT AND ORIENTED X4. IN ROOM AIR AND DENIES SOB. RESPIRATION REGULAR AND UNLABORED. DENIES PAIN. THE PATIENT IN NO APPARENT DISTRESS. BJ MIDLINE G 18 PATENT AND NORMAL SALINE INFUSING AT 75ML/HR. NO S/S INFILTRATION NOTED. BED LOW AND LOCKED. SIDE RAILS UP X3. CALL LIGHT WITHIN REACH. WILL CONTINUE TO MONITOR.
[2018-09-23 08:53] VITALS: BP 140/84
[2018-09-23 09:00] LABS: CALCIUM, SERUM 8.8 mg/dL (8.5-10.1); CREATININE 0.8 mg/dL (0.6-1.3)
[2018-09-23] MEDS: HYDROGEL DRESSING 90 GM TUBE TP SCH (09:00)
[2018-09-23 13:00] VITALS: BP 132/95
[2018-09-23] MEDS: IV NS 0.9% 1,000 ML IV PRN (14:57)
[2018-09-23 16:02] VITALS: BP 139/79
[2018-09-23] MEDS: CEFTRIAXONE 1 G in IV D5W 50 ML IV SCH (18:42)
--- NOTE | 2018-09-23 18:51 | NUR ---
MS/RN NOTE THE PATIENT ALERT AND ORIENTED X4. IN ROOM AIR AND SATURATION IS AT 97%. DENIES SOB. RESPIRATION REGULAR AND UNLABORED. DENIES PAIN. THE PATIENT IN NO APPARENT DISTRESS. THE PATIENT REFUSED TREATMENT, TURNING, REPOSITIONING DESPITE EXPLAINING RISKS AND BENEFITS. BJ MIDLINE G 18 PATENT AND IV ANTIBIOTIC INFUSING PER ORDER. NO S/S INFILTRATION NOTED. BED LOW AND LOCKED. SIDE RAILS UP X3. CALL LIGHT WITHIN REACH. WILL ENDORSE TO [facility].
--- NOTE | 2018-09-23 19:20 | NUR ---
MS RN RECEIVED PT ON BED, A/O X 3, NOT IN ANY FORM OF DISTRESS, RESPIRATIONS EVEN AND UNLABORED, NO SOB NOTED, STABLE CONDITION. SAFETY MEASURES IN PLACE. WILL CONTINUE TO MONITOR .
--- NOTE | 2018-09-23 20:00 | NUR ---
TRANSFERRED TO ROOM 201 WITH MOTHER IN STABLE CONDITION WITH ALL BELONGINGS TAKEN
[2018-09-23 20:30] VITALS: BP 156/92
[2018-09-23] MEDS: HYDROCODONE/APAP 10/325MG 1 EA TABLET PO PRN (22:39)
[2018-09-24] MEDS: HYDROCODONE/APAP 10/325MG 1 EA TABLET PO PRN ×3 (02:57→16:09)
[2018-09-24] MEDS: IV NS 0.9% 1,000 ML IV PRN (04:57)
--- NOTE | 2018-09-24 06:19 | NUR ---
ASLEEP AND EASILY AWAKEN. RESPIRATIONS EVEN AND UNLABORED. NOT IN DISTRESS. STABLE. NURSING CARE RENDERED, KEPT CLEAN AND DRY AND COMFORT, NEEDS ATTENDED AND ANTICIPATED. GOOD SKIN CARE PROVIDED. PT REFUSED RE TAKE PICTURES TO THE WOUND PT STATED "I JUST WANNA SLEEP NO PICTURES PLS" DESPITE EXPLAINING RISKS AND BENEFITS OFFERED 3 TIMES STILL REFUSED. SAFETY MEASURES IN PLACE, CALL LIGHT WITHIN REACH. WILL ENDORSE NEXT SHIFT.
--- NOTE | 2018-09-24 07:46 | NUR ---
MS RN NOTES PATIENT RECEIVED RESTING INSIDE ROOM. AWAKE, ALERT AND ORIENTED, VERBALLY RESPONSIVE AND RESPONDS TO VERBAL AND TACTILE STIMULI. NO ACUTE DISTRESS NOTED AT THIS TIME. PATIENT CALM AND RELAXED. DRESSING ON LEFT FOOT INTACT. NO CHANGES IN LOC NOTED AT THIS TIME. WILL CONTINUE TO MONITOR. BED LOCKED AND IN LOW POSITION. BILATERAL UPPER SIDE RAILS UP AND LOCKED. CALL LIGHT WITHIN EASY REACH
[2018-09-24 08:06] VITALS: BP 127/67
[2018-09-24] MEDS: HYDROGEL DRESSING 90 GM TUBE TP SCH (08:06)
--- NOTE | 2018-09-24 11:30 | NUR ---
MS RN NOTES PATIENT WITH ORDER FROM DR. PASCUAL TO OK TO DISCHARGE HOME, HOME HEALTH TO FOLLOW PATIENT. PATIENT MADE AWARE AND VERBALIZED UNDERSTANDING. CASE MANAGEMENT AWARE. PATIENT TO HAVE IV ATB DOSE TODAY PRIOR TO DISCHARGING. WILL CONTINUE TO MONITOR
--- NOTE | 2018-09-24 12:45 | NUR ---
MS RN NOTES PATIENT SEEN AND EXAMINED BY DR. DANIELS. WITH PLAN FOR FOLLOW-UP APPOINTMENT AFTER DISCHARGE. CASE MANAGEMENT AWARE. PER CASE MANAGEMENT, CLINIC IS AWARE AND WILL CALL THE PATIENT ON 09/25/18 REGARDING APPOINTMENT SCHEDULED. PATIENT MADE AWARE AND VERBALIZED UNDERSTANDING. WILL CONTINUE TO MONITOR
[2018-09-24 16:00] VITALS: BP 164/92
[2018-09-24] MEDS: CEFTRIAXONE 1 G in IV D5W 50 ML IV SCH (17:41)
--- NOTE | 2018-09-24 18:48 | NUR ---
MS RN NOTES PATIENT RESTING INSIDE ROOM. AWAKE, ALERT AND ORIENTED, VERBALLY RESPONSIVE AND RESPONDS TO VERBAL AND TACTILE STIMULI. DENIES ANY PAIN OR DISCOMFORT. AWAITING FOR FRIEND TO PICK HIM UP FOR DISCHARGE HOME. ALL NURSING NEEDS ATTENDED AND MET. PICCLINE ON BJ INTACT, DRESSING IN PLACE, WILL ENDORSE TO INCOMING SHIFT FOR SARANYA. BED LOCKED AND IN LOW POSITION. BILATERAL UPPER SIDE RAILS UP AND LOCKED. CALL LIGHT WITHIN EASY REACH
--- NOTE | 2018-09-24 19:15 | NUR ---
MS RN NOTES PATIENT FOR DISCHARGE TODAY. PATIENT'S MOTHER WENT TO UNIT TO PICK PATIENT UP. DISCHARGE INSTRUCTIONS AND EDUCATION PROVIDED TO PATIENT AND VERBALIZED UNDERSTANDING. ALL BELONGINGS COMPLETE ON DISCHARGE, NO REPORT OF MISSING INVENTORY. PICCLINE IN PLACE. TO STAY ON PATIENT 2 IV ATB TX WITH HOME HEALTH. PATIENT LEFT UNIT AT 1905 IN STABLE CONDITION. BREATHING EVEN AND UNLABORED. ACCOMPANIED BY NURSING STAFF TO PARKING LOT. LEFT HOSPITAL PREMISES VIA PRIVATE CAR. MD AWARE OF DISCHARGE
== END 2018-09-24 19:05 | disposition home health service (06) | DRG 570 ==
LOC: MED 13:59 → MEDSG2 09-23 18:49
PROVIDERS: ATTEND Internal Medicine
PROC: 05H633Z Insertion of Infusion Device into Left Subclavian Vein, Percutaneous Approach (ICD-10-PCS; 2018-09-17)
PROC: B547ZZA Ultrasonography of Left Subclavian Vein, Guidance (ICD-10-PCS; 2018-09-17)
PROC: 0KBP0ZZ Excision of Left Hip Muscle, Open Approach (ICD-10-PCS; principal; 2018-09-20)
PROC: 0JBR0ZZ Excision of Left Foot Subcutaneous Tissue and Fascia, Open Approach (ICD-10-PCS; 2018-09-20)
PROC: 02HV33Z Insertion of Infusion Device into Superior Vena Cava, Percutaneous Approach (ICD-10-PCS; 2018-09-24)
PROC: B548ZZA Ultrasonography of Superior Vena Cava, Guidance (ICD-10-PCS; 2018-09-24)
DX: L03.116 Cellulitis of left lower limb (principal); L89.324 Pressure ulcer of left buttock, stage 4; E46 Unspecified protein-calorie malnutrition; L08.9 Local infection of the skin and subcutaneous tissue, unspecified; Q05.9 Spina bifida, unspecified; Z72.0 Tobacco use; L97.523 Non-pressure chronic ulcer of other part of left foot with necrosis of muscle; M20.42 Other hammer toe(s) (acquired), left foot; G60.3 Idiopathic progressive neuropathy
CPT/HCPCS: 36415; 36569; 71045-TC; 73630-TC; 73718-TC; 80048-TC; 80061-TC; 80202-TC; 83735-TC; 84100-TC; 84443-TC; 85025-TC; 85652-TC; 87070-TC; 87075-TC; 87081-TC; 87186-TC; A6248; A6253; A6402; A6403; C1751; G0378; J0696; J1170; J2060; J2405; J2543; J3370; J3490; J7030; J7050; J7060

== ENCOUNTER 2018-10-01 11:45 | Outpatient (CLI) | payer MEDICARE, OTHER ==
[2018-10-01 12:07] VITALS: BP 131/86
== END 2018-10-01 23:59 | disposition home or self-care (01) ==
LOC: MSC 11:45
PROVIDERS: ATTEND Nurse Practitioner Acute Care
DX: L97.529 Non-pressure chronic ulcer of other part of left foot with unspecified severity (principal); L03.116 Cellulitis of left lower limb; Q05.9 Spina bifida, unspecified; M20.42 Other hammer toe(s) (acquired), left foot

== ENCOUNTER 2018-10-11 12:30 | Outpatient (CLI) | payer MEDICARE, OTHER | END 2018-10-11 23:59 | LOC: WOU 12:30 | PROVIDERS: ATTEND Podiatrist Foot & Ankle Surgery | DX: S91.311A Laceration without foreign body, right foot, initial encounter (principal); S91.312A Laceration without foreign body, left foot, initial encounter; X58.XXXA Exposure to other specified factors, initial encounter; Y92.89 Other specified places as the place of occurrence of the external cause; G60.3 Idiopathic progressive neuropathy; Q05.2 Lumbar spina bifida with hydrocephalus; Z98.2 Presence of cerebrospinal fluid drainage device; L89.153 Pressure ulcer of sacral region, stage 3; L89.324 Pressure ulcer of left buttock, stage 4; Z89.421 Acquired absence of other right toe(s); Z72.0 Tobacco use | CPT/HCPCS: 11042; 11043; A6402 ==

== ENCOUNTER 2018-10-18 13:04 | Outpatient (CLI) | payer MEDICARE, OTHER | END 2018-10-18 23:59 | disposition home health service (06) | LOC: WOU 13:04 | PROVIDERS: ATTEND Podiatrist Foot & Ankle Surgery | DX: L97.523 Non-pressure chronic ulcer of other part of left foot with necrosis of muscle (principal); G60.3 Idiopathic progressive neuropathy; Q05.2 Lumbar spina bifida with hydrocephalus; L84 Corns and callosities; Z98.2 Presence of cerebrospinal fluid drainage device; F17.210 Nicotine dependence, cigarettes, uncomplicated; M21.6X9 Other acquired deformities of unspecified foot; L89.324 Pressure ulcer of left buttock, stage 4; L89.153 Pressure ulcer of sacral region, stage 3 | CPT/HCPCS: 11043; A6402 ==

== ENCOUNTER 2018-11-01 09:50 | Outpatient (CLI) | payer MEDICARE, OTHER | END 2018-11-01 23:59 | LOC: WOU 09:50 | PROVIDERS: ATTEND Podiatrist Foot & Ankle Surgery | DX: Z47.89 Encounter for other orthopedic aftercare (principal); L97.522 Non-pressure chronic ulcer of other part of left foot with fat layer exposed; G60.3 Idiopathic progressive neuropathy; Q05.2 Lumbar spina bifida with hydrocephalus; F17.210 Nicotine dependence, cigarettes, uncomplicated; Z98.2 Presence of cerebrospinal fluid drainage device; L89.324 Pressure ulcer of left buttock, stage 4; L89.153 Pressure ulcer of sacral region, stage 3 | CPT/HCPCS: 11042; A6209; A6402 ==

== ENCOUNTER 2018-11-08 12:35 | Outpatient (CLI) | payer MEDICARE, OTHER | END 2018-11-08 23:59 | LOC: WOU 12:35 | PROVIDERS: ATTEND Podiatrist Foot & Ankle Surgery | DX: Z47.89 Encounter for other orthopedic aftercare (principal); G60.3 Idiopathic progressive neuropathy; L97.522 Non-pressure chronic ulcer of other part of left foot with fat layer exposed; Q05.2 Lumbar spina bifida with hydrocephalus; L89.324 Pressure ulcer of left buttock, stage 4; L89.153 Pressure ulcer of sacral region, stage 3; Z98.2 Presence of cerebrospinal fluid drainage device; F17.210 Nicotine dependence, cigarettes, uncomplicated; Z89.431 Acquired absence of right foot | CPT/HCPCS: 11042; A6209; A6402 ==

== ENCOUNTER 2018-11-15 13:08 | Outpatient (CLI) | payer MEDICARE, OTHER | END 2018-11-15 23:59 | disposition home health service (06) | LOC: WOU 13:08 | PROVIDERS: ATTEND Podiatrist Foot & Ankle Surgery | DX: L97.522 Non-pressure chronic ulcer of other part of left foot with fat layer exposed (principal); G60.3 Idiopathic progressive neuropathy; Q05.2 Lumbar spina bifida with hydrocephalus; Z98.2 Presence of cerebrospinal fluid drainage device; F17.210 Nicotine dependence, cigarettes, uncomplicated | CPT/HCPCS: 11042; A6209; A6402 ==

== ENCOUNTER 2018-11-22 13:30 | Outpatient (CLI) | payer MEDICARE, OTHER | END 2018-11-22 23:59 | disposition home health service (06) | LOC: WOU 13:30 | PROVIDERS: ATTEND Podiatrist Foot & Ankle Surgery | DX: L97.522 Non-pressure chronic ulcer of other part of left foot with fat layer exposed (principal); G60.3 Idiopathic progressive neuropathy; Q05.2 Lumbar spina bifida with hydrocephalus; Z98.2 Presence of cerebrospinal fluid drainage device; F17.210 Nicotine dependence, cigarettes, uncomplicated | CPT/HCPCS: 11042; A6402 ==

== ENCOUNTER 2018-11-29 10:45 | Outpatient (CLI) | payer MEDICARE, OTHER | END 2018-11-29 23:59 | disposition home health service (06) | LOC: WOU 10:45 | PROVIDERS: ATTEND Podiatrist Foot & Ankle Surgery | DX: T81.31XA Disruption of external operation (surgical) wound, not elsewhere classified, initial encounter (principal); L97.522 Non-pressure chronic ulcer of other part of left foot with fat layer exposed; L84 Corns and callosities; M86.48 Chronic osteomyelitis with draining sinus, other site; G60.3 Idiopathic progressive neuropathy; Q05.2 Lumbar spina bifida with hydrocephalus; L89.324 Pressure ulcer of left buttock, stage 4; L89.153 Pressure ulcer of sacral region, stage 3; Z98.2 Presence of cerebrospinal fluid drainage device; F17.210 Nicotine dependence, cigarettes, uncomplicated | CPT/HCPCS: A6209; A6402; G0463 ==

== ENCOUNTER 2018-12-03 13:00 | Outpatient (CLI) | payer MEDICARE, OTHER | END 2018-12-03 23:59 | disposition home health service (06) | LOC: WOU 13:00 | PROVIDERS: ATTEND Surgery | DX: L89.324 Pressure ulcer of left buttock, stage 4 (principal); T81.31XD Disruption of external operation (surgical) wound, not elsewhere classified, subsequent encounter; L97.522 Non-pressure chronic ulcer of other part of left foot with fat layer exposed; E88.09 Other disorders of plasma-protein metabolism, not elsewhere classified; M86.48 Chronic osteomyelitis with draining sinus, other site; Q05.2 Lumbar spina bifida with hydrocephalus; G60.3 Idiopathic progressive neuropathy; L84 Corns and callosities; F17.210 Nicotine dependence, cigarettes, uncomplicated; Z79.899 Other long term (current) drug therapy | CPT/HCPCS: 11043; A6402 ==

== ENCOUNTER 2018-12-06 14:00 | Outpatient (CLI) | payer MEDICARE, OTHER | END 2018-12-06 23:59 | disposition home health service (06) | LOC: WOU 14:00 | PROVIDERS: ATTEND Podiatrist Foot & Ankle Surgery | DX: Z48.817 Encounter for surgical aftercare following surgery on the skin and subcutaneous tissue (principal); G60.3 Idiopathic progressive neuropathy; Q05.2 Lumbar spina bifida with hydrocephalus; L84 Corns and callosities; Z98.2 Presence of cerebrospinal fluid drainage device; F17.210 Nicotine dependence, cigarettes, uncomplicated | CPT/HCPCS: A6402; G0463 ==

== ENCOUNTER 2018-12-13 13:10 | Outpatient (CLI) | payer MEDICARE, OTHER | END 2018-12-13 23:59 | disposition home health service (06) | LOC: WOU 13:10 | PROVIDERS: ATTEND Surgery | DX: L89.324 Pressure ulcer of left buttock, stage 4 (principal); L89.153 Pressure ulcer of sacral region, stage 3; G60.3 Idiopathic progressive neuropathy; Q05.2 Lumbar spina bifida with hydrocephalus; M86.48 Chronic osteomyelitis with draining sinus, other site; F17.210 Nicotine dependence, cigarettes, uncomplicated; Z98.2 Presence of cerebrospinal fluid drainage device; E88.09 Other disorders of plasma-protein metabolism, not elsewhere classified | CPT/HCPCS: 11043; A6402 ==

== ENCOUNTER 2018-12-17 12:45 | Outpatient (CLI) | payer MEDICARE, OTHER | END 2018-12-17 23:59 | disposition home health service (06) | LOC: WOU 12:45 | PROVIDERS: ATTEND Podiatrist Foot & Ankle Surgery | DX: Z09 Encounter for follow-up examination after completed treatment for conditions other than malignant neoplasm (principal); Z87.2 Personal history of diseases of the skin and subcutaneous tissue; G60.3 Idiopathic progressive neuropathy; Q05.2 Lumbar spina bifida with hydrocephalus; L84 Corns and callosities; M86.48 Chronic osteomyelitis with draining sinus, other site; L89.324 Pressure ulcer of left buttock, stage 4; L89.153 Pressure ulcer of sacral region, stage 3; Z79.899 Other long term (current) drug therapy | CPT/HCPCS: G0463 ==

== ENCOUNTER 2018-12-21 14:35 | Outpatient (CLI) | payer MEDICARE, OTHER | END 2018-12-21 23:59 | disposition home or self-care (01) | LOC: RAD 14:35 | PROVIDERS: ATTEND Podiatrist Foot & Ankle Surgery | DX: Z75.3 Unavailability and inaccessibility of health-care facilities (principal) ==

== ENCOUNTER 2018-12-27 13:00 | Outpatient (CLI) | payer MEDICARE, OTHER | END 2018-12-27 23:59 | disposition home health service (06) | LOC: WOU 13:00 | PROVIDERS: ATTEND Surgery | DX: L89.324 Pressure ulcer of left buttock, stage 4 (principal); M86.48 Chronic osteomyelitis with draining sinus, other site; Q05.2 Lumbar spina bifida with hydrocephalus; G60.3 Idiopathic progressive neuropathy; Z98.2 Presence of cerebrospinal fluid drainage device; F17.210 Nicotine dependence, cigarettes, uncomplicated; E88.09 Other disorders of plasma-protein metabolism, not elsewhere classified; K59.00 Constipation, unspecified | CPT/HCPCS: 11043; A6402 ==

== ENCOUNTER 2019-01-10 13:45 | Outpatient (CLI) | payer MEDICARE, OTHER | END 2019-01-10 23:59 | disposition home or self-care (01) | LOC: WOU 13:45 | PROVIDERS: ATTEND Surgery | DX: L89.324 Pressure ulcer of left buttock, stage 4 (principal); M86.48 Chronic osteomyelitis with draining sinus, other site; Q05.2 Lumbar spina bifida with hydrocephalus; G60.3 Idiopathic progressive neuropathy; E88.09 Other disorders of plasma-protein metabolism, not elsewhere classified; Z98.2 Presence of cerebrospinal fluid drainage device; F17.210 Nicotine dependence, cigarettes, uncomplicated | CPT/HCPCS: 11043; A6402 ==

== ENCOUNTER 2019-01-24 12:50 | Outpatient (CLI) | payer MEDICARE, OTHER | END 2019-01-24 23:59 | disposition home or self-care (01) | LOC: WOU 12:50 | PROVIDERS: ATTEND Surgery | DX: L89.324 Pressure ulcer of left buttock, stage 4 (principal); Q05.2 Lumbar spina bifida with hydrocephalus; G60.3 Idiopathic progressive neuropathy; Z98.2 Presence of cerebrospinal fluid drainage device; F17.210 Nicotine dependence, cigarettes, uncomplicated; E88.09 Other disorders of plasma-protein metabolism, not elsewhere classified | CPT/HCPCS: 11043; A6402 ==

== ENCOUNTER 2019-02-14 13:10 | Outpatient (CLI) | payer MEDICARE, OTHER | END 2019-02-14 23:59 | disposition home or self-care (01) | LOC: WOU 13:10 | PROVIDERS: ATTEND Surgery | DX: L89.324 Pressure ulcer of left buttock, stage 4 (principal); F17.210 Nicotine dependence, cigarettes, uncomplicated; Q05.2 Lumbar spina bifida with hydrocephalus; G60.3 Idiopathic progressive neuropathy; Z98.2 Presence of cerebrospinal fluid drainage device | CPT/HCPCS: 11043; A6402 ==

== ENCOUNTER 2019-02-28 13:00 | Outpatient (CLI) | payer MEDICARE, OTHER | END 2019-02-28 23:59 | disposition home or self-care (01) | LOC: WOU 13:00 | PROVIDERS: ATTEND Surgery | DX: L89.324 Pressure ulcer of left buttock, stage 4 (principal); Q05.2 Lumbar spina bifida with hydrocephalus; G60.3 Idiopathic progressive neuropathy; F17.210 Nicotine dependence, cigarettes, uncomplicated; Z98.2 Presence of cerebrospinal fluid drainage device | CPT/HCPCS: 11043 ==

== ENCOUNTER 2019-03-14 13:30 | Outpatient (CLI) | payer MEDICARE, OTHER ==
[~2019-03-14 13:30] MED LIST changes: +HYDROCODONE/APAP 5/325MG 1 EACH TABLET ONE; -LIDOCAINE 1% INJ 50 ML MDV IJ ONE; -TDAP [DIPH/PERTUSSIS/TET] 0.5 ML VIAL IM ONE
== END 2019-03-14 23:59 | disposition home or self-care (01) ==
LOC: WOU 13:30
PROVIDERS: ATTEND Surgery
DX: L89.324 Pressure ulcer of left buttock, stage 4 (principal); Q05.2 Lumbar spina bifida with hydrocephalus; G60.3 Idiopathic progressive neuropathy; Z98.2 Presence of cerebrospinal fluid drainage device; F17.210 Nicotine dependence, cigarettes, uncomplicated
CPT/HCPCS: 11043

== ENCOUNTER 2019-04-22 13:30 | Outpatient (CLI) | payer MEDICARE, OTHER | END 2019-04-22 23:59 | disposition home or self-care (01) | LOC: WOU 13:30 | PROVIDERS: ATTEND Surgery | DX: L89.324 Pressure ulcer of left buttock, stage 4 (principal); M86.48 Chronic osteomyelitis with draining sinus, other site; Q05.2 Lumbar spina bifida with hydrocephalus; G60.3 Idiopathic progressive neuropathy; L84 Corns and callosities | CPT/HCPCS: 11043 ==

== ENCOUNTER 2019-05-06 13:20 | Outpatient (CLI) | payer MEDICARE, OTHER | END 2019-05-06 23:59 | disposition home or self-care (01) | LOC: WOU 13:20 | PROVIDERS: ATTEND Surgery | DX: L89.324 Pressure ulcer of left buttock, stage 4 (principal); M86.48 Chronic osteomyelitis with draining sinus, other site; G60.3 Idiopathic progressive neuropathy; Q05.2 Lumbar spina bifida with hydrocephalus; L84 Corns and callosities; F17.210 Nicotine dependence, cigarettes, uncomplicated; Z79.899 Other long term (current) drug therapy | CPT/HCPCS: 11043 ==

== ENCOUNTER 2019-05-20 13:23 | Outpatient (CLI) | payer MEDICARE, OTHER | END 2019-05-20 23:59 | disposition home or self-care (01) | LOC: WOU 13:23 | PROVIDERS: ATTEND Surgery | DX: L89.324 Pressure ulcer of left buttock, stage 4 (principal); M86.48 Chronic osteomyelitis with draining sinus, other site; G60.3 Idiopathic progressive neuropathy; Q05.2 Lumbar spina bifida with hydrocephalus; L84 Corns and callosities; F17.210 Nicotine dependence, cigarettes, uncomplicated; Z79.899 Other long term (current) drug therapy | CPT/HCPCS: 11043 ==

== ENCOUNTER 2019-06-03 13:30 | Outpatient (CLI) | payer MEDICARE, OTHER | END 2019-06-03 23:59 | disposition home or self-care (01) | LOC: WOU 13:30 | PROVIDERS: ATTEND Surgery | DX: L89.324 Pressure ulcer of left buttock, stage 4 (principal); M86.48 Chronic osteomyelitis with draining sinus, other site; G60.3 Idiopathic progressive neuropathy; Q05.2 Lumbar spina bifida with hydrocephalus; L84 Corns and callosities; F17.210 Nicotine dependence, cigarettes, uncomplicated; Z79.899 Other long term (current) drug therapy | CPT/HCPCS: 11043 ==

== ENCOUNTER 2019-07-08 13:15 | Outpatient (CLI) | payer MEDICARE, OTHER | END 2019-07-08 23:59 | disposition home or self-care (01) | LOC: WOU 13:15 | PROVIDERS: ATTEND Surgery | DX: L89.324 Pressure ulcer of left buttock, stage 4 (principal); M86.48 Chronic osteomyelitis with draining sinus, other site; Q05.2 Lumbar spina bifida with hydrocephalus; G60.3 Idiopathic progressive neuropathy; L84 Corns and callosities; F17.210 Nicotine dependence, cigarettes, uncomplicated | CPT/HCPCS: 11043 ==

== ENCOUNTER 2019-08-05 09:00 | Outpatient (CLI) | payer MEDICARE, OTHER | END 2019-08-05 23:59 | disposition home or self-care (01) | LOC: WOU 09:00 | PROVIDERS: ATTEND Surgery | DX: L89.324 Pressure ulcer of left buttock, stage 4 (principal); M86.48 Chronic osteomyelitis with draining sinus, other site; G60.3 Idiopathic progressive neuropathy; Q05.2 Lumbar spina bifida with hydrocephalus; L84 Corns and callosities; F17.210 Nicotine dependence, cigarettes, uncomplicated; Z79.899 Other long term (current) drug therapy | CPT/HCPCS: 11043 ==

== ENCOUNTER 2019-08-19 08:55 | Outpatient (CLI) | payer MEDICARE, OTHER | END 2019-08-19 23:59 | disposition home or self-care (01) | LOC: WOU 08:55 | PROVIDERS: ATTEND Surgery | DX: L89.324 Pressure ulcer of left buttock, stage 4 (principal); M86.48 Chronic osteomyelitis with draining sinus, other site; Q05.2 Lumbar spina bifida with hydrocephalus; G60.3 Idiopathic progressive neuropathy; L84 Corns and callosities; F17.210 Nicotine dependence, cigarettes, uncomplicated; Z79.899 Other long term (current) drug therapy | CPT/HCPCS: 11043 ==

== ENCOUNTER 2019-09-02 09:15 | Outpatient (CLI) | payer MEDICARE, OTHER | END 2019-09-02 23:59 | disposition home or self-care (01) | LOC: WOU 09:15 | PROVIDERS: ATTEND Surgery | DX: L89.324 Pressure ulcer of left buttock, stage 4 (principal); M86.48 Chronic osteomyelitis with draining sinus, other site; G60.3 Idiopathic progressive neuropathy; Q05.2 Lumbar spina bifida with hydrocephalus; L84 Corns and callosities; F17.210 Nicotine dependence, cigarettes, uncomplicated; Z79.899 Other long term (current) drug therapy | CPT/HCPCS: 11043 ==

== ENCOUNTER 2019-09-16 09:20 | Outpatient (CLI) | payer MEDICARE, OTHER | END 2019-09-16 23:59 | disposition home or self-care (01) | LOC: WOU 09:20 | PROVIDERS: ATTEND Surgery | DX: L89.324 Pressure ulcer of left buttock, stage 4 (principal); M86.48 Chronic osteomyelitis with draining sinus, other site; G60.3 Idiopathic progressive neuropathy; Q05.2 Lumbar spina bifida with hydrocephalus; L84 Corns and callosities; F17.210 Nicotine dependence, cigarettes, uncomplicated; Z79.899 Other long term (current) drug therapy | CPT/HCPCS: 11043 ==

== ENCOUNTER 2019-10-07 10:00 | Outpatient (CLI) | payer MEDICARE, OTHER | END 2019-10-07 23:59 | disposition home or self-care (01) | LOC: WOU 10:00 | PROVIDERS: ATTEND Surgery | DX: L89.324 Pressure ulcer of left buttock, stage 4 (principal); G60.3 Idiopathic progressive neuropathy; Q05.2 Lumbar spina bifida with hydrocephalus; L84 Corns and callosities; F17.210 Nicotine dependence, cigarettes, uncomplicated; Z89.421 Acquired absence of other right toe(s); Z79.899 Other long term (current) drug therapy | CPT/HCPCS: 11043; A6452 ==

== ENCOUNTER 2019-10-21 09:45 | Outpatient (CLI) | payer MEDICARE, OTHER | END 2019-10-21 23:59 | disposition home or self-care (01) | LOC: WOU 09:45 | PROVIDERS: ATTEND Surgery | DX: L89.324 Pressure ulcer of left buttock, stage 4 (principal); M86.48 Chronic osteomyelitis with draining sinus, other site; G60.3 Idiopathic progressive neuropathy; Q05.2 Lumbar spina bifida with hydrocephalus; L84 Corns and callosities; F17.210 Nicotine dependence, cigarettes, uncomplicated; Z79.899 Other long term (current) drug therapy | CPT/HCPCS: 11043 ==

== ENCOUNTER 2019-11-04 10:00 | Outpatient (CLI) | payer MEDICARE, OTHER | END 2019-11-04 23:59 | disposition home or self-care (01) | LOC: WOU 10:00 | PROVIDERS: ATTEND Surgery | DX: L89.324 Pressure ulcer of left buttock, stage 4 (principal); G60.3 Idiopathic progressive neuropathy; Q05.2 Lumbar spina bifida with hydrocephalus; Z79.899 Other long term (current) drug therapy; F17.210 Nicotine dependence, cigarettes, uncomplicated | CPT/HCPCS: 11043 ==

== ENCOUNTER 2019-11-21 09:40 | Outpatient (CLI) | payer MEDICARE, OTHER | END 2019-11-21 23:59 | disposition home or self-care (01) | LOC: WOU 09:40 | PROVIDERS: ATTEND Surgery | DX: L89.324 Pressure ulcer of left buttock, stage 4 (principal); G60.3 Idiopathic progressive neuropathy; Q05.2 Lumbar spina bifida with hydrocephalus; L84 Corns and callosities; M86.48 Chronic osteomyelitis with draining sinus, other site; F17.210 Nicotine dependence, cigarettes, uncomplicated; Z79.899 Other long term (current) drug therapy | CPT/HCPCS: 11043 ==

== ENCOUNTER 2019-12-12 11:55 | Outpatient (CLI) | payer MEDICARE, OTHER | END 2019-12-12 23:59 | disposition home health service (06) | LOC: WOU 11:55 | PROVIDERS: ATTEND Surgery | DX: L89.324 Pressure ulcer of left buttock, stage 4 (principal); M86.60 Other chronic osteomyelitis, unspecified site; Q05.2 Lumbar spina bifida with hydrocephalus; G60.3 Idiopathic progressive neuropathy; L84 Corns and callosities; F17.210 Nicotine dependence, cigarettes, uncomplicated | CPT/HCPCS: 11043 ==

== ENCOUNTER 2019-12-26 12:00 | Outpatient (CLI) | payer MEDICARE, OTHER | END 2019-12-26 23:59 | disposition home health service (06) | LOC: WOU 12:00 | PROVIDERS: ATTEND Surgery | DX: L89.324 Pressure ulcer of left buttock, stage 4 (principal); M86.48 Chronic osteomyelitis with draining sinus, other site; G60.3 Idiopathic progressive neuropathy; Q05.9 Spina bifida, unspecified; L84 Corns and callosities; F17.210 Nicotine dependence, cigarettes, uncomplicated | CPT/HCPCS: 11043 ==

== ENCOUNTER 2020-01-16 14:40 | Outpatient (CLI) | payer MEDICARE, OTHER | END 2020-01-16 23:59 | disposition home health service (06) | LOC: WOU 14:40 | PROVIDERS: ATTEND Surgery | DX: L89.324 Pressure ulcer of left buttock, stage 4 (principal); Q05.2 Lumbar spina bifida with hydrocephalus; G60.3 Idiopathic progressive neuropathy; M86.48 Chronic osteomyelitis with draining sinus, other site; L84 Corns and callosities; F17.210 Nicotine dependence, cigarettes, uncomplicated; Z79.899 Other long term (current) drug therapy | CPT/HCPCS: 11043 ==

== ENCOUNTER 2020-02-06 13:40 | Outpatient (CLI) | payer MEDICARE, OTHER | END 2020-02-06 23:59 | disposition home health service (06) | LOC: WOU 13:40 | PROVIDERS: ATTEND Surgery | DX: L89.324 Pressure ulcer of left buttock, stage 4 (principal); M86.48 Chronic osteomyelitis with draining sinus, other site; G60.3 Idiopathic progressive neuropathy; Q05.2 Lumbar spina bifida with hydrocephalus; L84 Corns and callosities; F17.210 Nicotine dependence, cigarettes, uncomplicated; Z79.899 Other long term (current) drug therapy | CPT/HCPCS: 11043 ==

== ENCOUNTER 2020-03-26 13:45 | Outpatient (CLI) | payer MEDICARE, OTHER | END 2020-03-26 23:59 | disposition home health service (06) | LOC: WOU 13:45 | PROVIDERS: ATTEND Surgery | DX: L89.324 Pressure ulcer of left buttock, stage 4 (principal); G60.3 Idiopathic progressive neuropathy; Q05.2 Lumbar spina bifida with hydrocephalus; M86.48 Chronic osteomyelitis with draining sinus, other site; L84 Corns and callosities; F17.210 Nicotine dependence, cigarettes, uncomplicated | CPT/HCPCS: 11043 ==

== ENCOUNTER 2020-04-16 13:30 | Outpatient (CLI) | payer MEDICARE, OTHER | END 2020-04-16 23:59 | disposition home health service (06) | LOC: WOU 13:30 | PROVIDERS: ATTEND Surgery | DX: L89.324 Pressure ulcer of left buttock, stage 4 (principal); G60.3 Idiopathic progressive neuropathy; M86.48 Chronic osteomyelitis with draining sinus, other site; Q05.2 Lumbar spina bifida with hydrocephalus; L84 Corns and callosities; F17.210 Nicotine dependence, cigarettes, uncomplicated | CPT/HCPCS: 11043 ==

== ENCOUNTER 2020-04-30 14:45 | Outpatient (CLI) | payer MEDICARE, OTHER | END 2020-04-30 23:59 | disposition home health service (06) | LOC: WOU 14:45 | PROVIDERS: ATTEND Surgery | DX: L89.324 Pressure ulcer of left buttock, stage 4 (principal); M86.48 Chronic osteomyelitis with draining sinus, other site; G60.3 Idiopathic progressive neuropathy; Q05.2 Lumbar spina bifida with hydrocephalus; L84 Corns and callosities; F17.210 Nicotine dependence, cigarettes, uncomplicated | CPT/HCPCS: 11043 ==

== ENCOUNTER 2020-09-03 13:15 | Outpatient (CLI) | payer MEDICARE, OTHER | END 2020-09-03 23:59 | disposition home or self-care (01) | LOC: WOU 13:15 | PROVIDERS: ATTEND Surgery | DX: Z53.21 Procedure and treatment not carried out due to patient leaving prior to being seen by health care provider (principal) ==

== ENCOUNTER 2020-09-10 13:45 | Outpatient (CLI) | payer MEDICARE, OTHER | END 2020-09-10 23:59 | disposition home health service (06) | LOC: WOU 13:45 | PROVIDERS: ATTEND Surgery | DX: L89.324 Pressure ulcer of left buttock, stage 4 (principal); G60.3 Idiopathic progressive neuropathy; Q05.2 Lumbar spina bifida with hydrocephalus; L84 Corns and callosities; F17.210 Nicotine dependence, cigarettes, uncomplicated | CPT/HCPCS: 11043 ==

== ENCOUNTER 2020-10-01 14:00 | Outpatient (CLI) | payer MEDICARE, OTHER | END 2020-10-01 23:59 | disposition home health service (06) | LOC: WOU 14:00 | PROVIDERS: ATTEND Surgery | DX: L89.324 Pressure ulcer of left buttock, stage 4 (principal); M86.48 Chronic osteomyelitis with draining sinus, other site; G60.3 Idiopathic progressive neuropathy; Q05.2 Lumbar spina bifida with hydrocephalus; F17.200 Nicotine dependence, unspecified, uncomplicated | CPT/HCPCS: 11043 ==

== ENCOUNTER 2020-10-15 13:50 | Outpatient (CLI) | payer MEDICARE, OTHER ==
[~2020-10-15 13:50] MED LIST changes: -HYDROCODONE/APAP 5/325MG 1 EACH TABLET ONE; +LIDOCAINE SOLN 4% 50 ML BOTTLE ONE
== END 2020-10-15 23:59 | disposition home health service (06) ==
LOC: WOU 13:50
PROVIDERS: ATTEND Surgery
DX: L89.324 Pressure ulcer of left buttock, stage 4 (principal); M86.48 Chronic osteomyelitis with draining sinus, other site; G60.3 Idiopathic progressive neuropathy; Q05.2 Lumbar spina bifida with hydrocephalus; L84 Corns and callosities; F17.200 Nicotine dependence, unspecified, uncomplicated
CPT/HCPCS: 11043

== ENCOUNTER 2020-11-05 14:00 | Outpatient (CLI) | payer MEDICARE, OTHER | END 2020-11-05 23:59 | disposition home health service (06) | LOC: WOU 14:00 | PROVIDERS: ATTEND Surgery | DX: L89.324 Pressure ulcer of left buttock, stage 4 (principal); M86.48 Chronic osteomyelitis with draining sinus, other site; G60.3 Idiopathic progressive neuropathy; Q05.2 Lumbar spina bifida with hydrocephalus; L84 Corns and callosities; Z72.0 Tobacco use | CPT/HCPCS: 11043 ==

== ENCOUNTER 2020-12-17 14:06 | Outpatient (CLI) | payer MEDICARE, OTHER | END 2020-12-17 23:59 | disposition home health service (06) | LOC: WOU 14:06 | PROVIDERS: ATTEND Surgery | DX: L89.324 Pressure ulcer of left buttock, stage 4 (principal); Q05.2 Lumbar spina bifida with hydrocephalus; G60.3 Idiopathic progressive neuropathy; L84 Corns and callosities; F17.210 Nicotine dependence, cigarettes, uncomplicated | CPT/HCPCS: 11043 ==

== ENCOUNTER 2021-01-11 14:00 | Outpatient (CLI) | payer MEDICARE, OTHER | END 2021-01-11 23:59 | disposition home or self-care (01) | LOC: WOU 14:00 | PROVIDERS: ATTEND Surgery | DX: Z53.21 Procedure and treatment not carried out due to patient leaving prior to being seen by health care provider (principal) ==

== ENCOUNTER 2021-02-01 13:45 | Outpatient (CLI) | payer MEDICARE, OTHER | END 2021-02-01 23:59 | disposition home health service (06) | LOC: WOU 13:45 | PROVIDERS: ATTEND Surgery | DX: L89.324 Pressure ulcer of left buttock, stage 4 (principal); M89.48 Other hypertrophic osteoarthropathy, other site; Q05.2 Lumbar spina bifida with hydrocephalus; G60.3 Idiopathic progressive neuropathy; F17.200 Nicotine dependence, unspecified, uncomplicated | CPT/HCPCS: 11043 ==

== ENCOUNTER 2021-02-15 13:00 | Outpatient (CLI) | payer MEDICARE, OTHER ==
[2021-02-15] MEDS ORDERED: LIDOCAINE SOLN 4% 50 ML BOTTLE ONE (13:39)
== END 2021-02-15 23:59 | disposition home health service (06) ==
LOC: WOU 13:00
PROVIDERS: ATTEND Surgery
DX: L89.324 Pressure ulcer of left buttock, stage 4 (principal); M86.48 Chronic osteomyelitis with draining sinus, other site; G60.3 Idiopathic progressive neuropathy; Q05.2 Lumbar spina bifida with hydrocephalus; F17.210 Nicotine dependence, cigarettes, uncomplicated
CPT/HCPCS: 11043

== ENCOUNTER 2021-12-23 13:00 | Outpatient (CLI) | payer MEDICARE, OTHER | END 2021-12-23 23:59 | disposition home health service (06) | LOC: WOU 13:00 | PROVIDERS: ATTEND Surgery | DX: L89.324 Pressure ulcer of left buttock, stage 4 (principal); M86.48 Chronic osteomyelitis with draining sinus, other site; M62.50 Muscle wasting and atrophy, not elsewhere classified, unspecified site; Q05.9 Spina bifida, unspecified; Z89.421 Acquired absence of other right toe(s); Z98.2 Presence of cerebrospinal fluid drainage device | CPT/HCPCS: 11043 ==

== ENCOUNTER 2021-12-30 13:00 | Outpatient (CLI) | payer MEDICARE, OTHER | END 2021-12-30 23:59 | disposition home health service (06) | LOC: WOU 13:00 | PROVIDERS: ATTEND Surgery | DX: L89.324 Pressure ulcer of left buttock, stage 4 (principal); L89.323 Pressure ulcer of left buttock, stage 3; M86.48 Chronic osteomyelitis with draining sinus, other site; M62.50 Muscle wasting and atrophy, not elsewhere classified, unspecified site; Q05.9 Spina bifida, unspecified; F17.210 Nicotine dependence, cigarettes, uncomplicated | CPT/HCPCS: 11042; 11043 ==

== ENCOUNTER 2022-01-27 13:00 | Outpatient (CLI) | payer MEDICARE, OTHER | END 2022-01-27 23:59 | disposition home health service (06) | LOC: WOU 13:00 | PROVIDERS: ATTEND Surgery | DX: L89.324 Pressure ulcer of left buttock, stage 4 (principal); L89.623 Pressure ulcer of left heel, stage 3; M86.48 Chronic osteomyelitis with draining sinus, other site; Q05.9 Spina bifida, unspecified; M62.50 Muscle wasting and atrophy, not elsewhere classified, unspecified site; F17.210 Nicotine dependence, cigarettes, uncomplicated | CPT/HCPCS: 11042; 11043 ==